=== PATIENT | female | born 1945 | race Caucasian/White ===

== ENCOUNTER 2016-07-24 09:35 | Emergency (ER) | payer OTHER ==
[~2016-07-24] VITALS: Ht 152.4 cm; Wt 45.5 kg
[~2016-07-24 09:35] MED LIST: COQ150CA PO; FISH100020 PO; MULT-65 PO
[2016-07-24 09:36] VITALS: BP 130/60; PULSE 81; RESP 17; TEMP 98.6; O2SAT 98
[2016-07-24] MEDS ORDERED: LIPI10TA PO (09:46)
[2016-07-24 10:30] VITALS: RESP 16; O2SAT 99
[2016-07-24] MEDS ORDERED: KETOROLAC TROMETHAMINE 30 MG/ML (IVP) VIAL IV PUSH ONE (10:30)
[2016-07-24] MEDS ORDERED: MORPHINE SULFATE 4 MG/ML INJ IV PUSH ONE (10:30)
[2016-07-24] MEDS ORDERED: ONDANSETRON HCL 4 MG/2 ML VIAL IVP ONE (10:30)
[2016-07-24] MEDS ORDERED: SODIUM CHLORIDE 0.9% FLUSH 10 ML FLUSH IV FLUSH PRN (10:30)
[2016-07-24 10:52] LABS: AUTOMATED NEUTROPHIL # 5.7 TH/MM3 (1.8-7.7); BASOPHIL % 0.3 % (0.0-2.0); EOSINOPHIL % 0.6 % (0.0-4.0); HEMATOCRIT 31.8 % (35.0-46.0); HEMO FLAGS DIFF FINAL; LYMPH % 5.9 % (9.0-44.0); LYMPHOCYTE # 0.4 TH/MM3 (1.0-4.8); MEAN CELL VOLUME 83.3 FL (80.0-100.0); MEAN CORPUSCULAR HEMOGLOBIN 27.6 PG (27.0-34.0); MEAN CORPUSCULAR HGB CONC 33.2 % (32.0-36.0); MONO % 5.4 % (0.0-8.0); NEUT % 87.8 % (16.0-70.0); PLATELET COUNT 202 TH/MM3 (150-450); RED BLOOD COUNT 3.82 MIL/MM3 (4.00-5.30); RED CELL DISTRIBUTION WIDTH 13.5 % (11.6-17.2); WHITE BLOOD COUNT 6.4 TH/MM3 (4.0-11.0)
--- NOTE | 2016-07-24 11:12 | RADRPT ---
EXAM DATE/TIME: 07/24/2016 10:47 [place] COMPARISON: No previous studies available for comparison. INDICATIONS : Right flank pain. ORAL CONTRAST: No oral contrast ingested. RADIATION DOSE: 3.10 CTDIvol (mGy) MEDICAL HISTORY : Cardiovascular disease. Diabetes mellitus type 2. SURGICAL HISTORY : None. ENCOUNTER: Initial ACUITY: 1 day PAIN SCALE: 3/10 LOCATION: Right Flank TECHNIQUE: Volumetric scanning of the abdomen and pelvis was performed. Using automated exposure control and ad justment of the mA and/or kV according to patient size, radiation dose was kept as low as reasonably achievable to obtain optimal diagnostic quality images. FINDINGS: LOWER LUNGS: The visualized lower lungs are clear. LIVER: Homogeneous density without lesion. There is no dilation of the biliary tree. No calcified gallston es. SPLEEN: Normal size without lesion. PANCREAS: Within normal limits. KIDNEYS: The left kidney is a unremarkable appearance with no renal calculi or obstruction. The right kidney i s mildly more prominent with moderate hydronephrosis and no right renal calculi. The right ureter is difficult to visualize and there is a 4 mm calcification in the right mid to posterior pelvis which i s of concern for a distal ureteral calculus. ADRENAL GLANDS: Within normal limits. VASCULAR: There is no aortic aneurysm. BOWEL/MESENTERY: There is evidence of anasarca with increased density throughout the mesentery. There is a small amoun t of free fluid in the posterior pelvis. The stomach, small bowel, and colon demonstrate no acute abn ormality. There is no free intraperitoneal air or fluid. ABDOMINAL WALL: Within normal limits. RETROPERITONEUM: There is no lymphadenopathy. BLADDER: No wall thickening or mass. REPRODUCTIVE: Within normal limits. INGUINAL: There is no lymphadenopathy or hernia. MUSCULOSKELETAL: Within normal limits for patient age. CONCLUSION: 1. Moderate right hydronephrosis. The right ureter is difficult to visualize however there is a 4 mm calcification in the right side of the pelvis which is of concern for a distal right ureteral calculu s. 2. Anasarca a small amount of fluid in the pelvis. Keon Fraser MD on July 24, 2016 at 11:02 Board Certified Radiologist. This report was verified electronically.
[2016-07-24 11:15] LABS: BACTERIA, URINE FEW /hpf; BLOOD, URINE LARGE (NEG); GLUCOSE,URINE NEG (NEG); HYALINE CAST, URINE 2 /lpf (RARE); KETONE, URINE TRACE mg/dL (NEG); MUCUS URINE FEW /lpf (OCC); NITRITE,URINE NEG (NEG); SQUAMOUS EPITHELIAL CELL URINE <1 /hpf (0-5); URINE COLOR YELLOW (YELLW/STRAW)
[2016-07-24 11:16] VITALS: RESP 16
[2016-07-24 11:16] LABS: COMMENT (UR) CULTURE INDICATED; CULTURE IF INDICATED CULTURE INDICATED
[2016-07-24 11:17] LABS: ALT (GPT) 23 U/L (10-53); ANION GAP 7 MEQ/L (5-15); AST (GOT) 22 U/L (15-37); BLOOD UREA NITROGEN 15 MG/DL (7-18); CHLORIDE 107 MEQ/L (98-107); GLOMERULAR FILTRATION RATE 70 ML/MIN (>89); POTASSIUM 3.7 MEQ/L (3.5-5.1); SODIUM (NA) 143 MEQ/L (136-145)
[2016-07-24 11:20] LABS: ALKALINE PHOSPHATASE 71 U/L (45-117); TOTAL BILIRUBIN ADULT 0.4 MG/DL (0.2-1.0)
[2016-07-24] MEDS ORDERED: HYDR-3533 PO (11:25)
[2016-07-24] MEDS ORDERED: ONDA4TAB7 SL (11:25)
[2016-07-24] MEDS ORDERED: PERI8.6T PO (11:25)
[2016-07-24] MEDS ORDERED: IBUP400T20 PO (11:26)
--- NOTE | 2016-07-24 11:26 | PD ---
HPI Chief Complaint: Flank/Kidney Pain Time Seen by Provider: 10:01 Travel History International Travel<30 days: No Contact w/Intl Traveler<30days: No Traveled to known affect area: No History of Present Illness HPI This is a 70-year-old woman who presents to the emergency department complaining of right flank pain. Patient is pretty quiet and her gives most of the history for her. She reports she is a history of memory problems. She currently started to develop right flank pain about 5 days ago. She was seen at outside hospital where she was diagnosed with a 3-5 mm kidney stone. She apparently was hospitalized due to pain. She was followed and they were planning on doing a procedure on Sunday, 2 days ago. However on Sunday night they apparently felt like her needs weren't being attended to until they left the hospital. He reports that they suffered over the weekend because "nothing at some of the hospital during the weekend". And then came to the emergency department today. He reportedly spoke to somebody at the [facility] office. She's had blood in her urine before his has a cystoscopy for that that was negative. She has reportedly never a kidney stones. She otherwise has been feeling generally well. No nausea vomiting. No fevers or chills. She has not taken anything for the pain since being home. She did not take anything this morning. She reports that her pain was "10 out of 10" this morning but is "7 out of 10 "now. History Past Medical History Narrative Medical Memory problems Vertigo Fibromyalgia Knee problems Borderline diabetes Tetanus Vaccination: > 5 Years Menopausal: Yes Social History Alcohol Use: No Tobacco Use: No Allergies-Medications (Allergen,Severity, Reaction): Uncoded Allergies: all medications (Allergy, Severe, 12/10/13) all prescribed medications causes nausea/sickness Reported Meds & Prescriptions Reported Meds & Active Scripts Active Ibuprofen 400 Mg Tab 400 Mg PO Q8H PRN Ondansetron Odt 4 Mg Tab 4 Mg SL Q8HR PRN Evi-Colace (Sennosides-Docusate Sodium) 8.6-50 Mg Tab 1 Tab PO BID PRN Lortab (Hydrocodone-Acetaminophen) 5-325 Mg Tab 1 Tab PO Q6H PRN Reported Lipitor (Atorvastatin Calcium) 10 Mg Tab 10 Mg PO DAILY Review of Systems Except as stated in HPI: all other systems reviewed are Neg Physical Exam Narrative GENERAL: Well-appearing 70-year-old woman, does not appear to be any discomfort or distress. SKIN: Focused skin assessment warm/dry. CARDIOVASCULAR: Regular rate and rhythm. No murmur appreciated. RESPIRATORY: No accessory muscle use. Clear to auscultation. Breath sounds equal bilaterally. GASTROINTESTINAL: Abdomen soft, non-tender, nondistended. Hepatic and splenic margins not palpable. No CVA tenderness to percussion. MUSCULOSKELETAL: No obvious deformities. No clubbing. No cyanosis. No edema. NEUROLOGICAL: Awake and alert. No obvious cranial nerve deficits. Motor grossly within normal limits. Normal speech. PSYCHIATRIC: Appropriate mood and affect; insight and judgment normal. Data Data Last Documented VS Vital Signs Date Time Temp Pulse Resp B/P Pulse Ox O2 Delivery O2 Flow Rate FiO2 07/24/16 11:16 16 07/24/16 10:30 99 Room Air 07/24/16 09:36 98.6 81 130/60 Orders Complete Blood Count With Diff (07/24/16 10:19) Comprehensive Metabolic Panel (07/24/16 10:19) Lipase (07/24/16 10:19) Urinalysis - C+S If Indicated (07/24/16 10:19) Ct Abd/Pel W/O Iv Contrast (07/24/16 10:19) Iv Access Insert/Monitor (07/24/16 10:19) Ecg Monitoring (07/24/16 10:19) Oximetry (07/24/16 10:19) Morphine Inj (Morphine Inj) (07/24/16 10:30) Ondansetron Inj (Zofran Inj) (07/24/16 10:30) Sodium Chloride 0.9% Flush (Ns Flush) (07/24/16 10:30) Ketorolac Inj (Toradol Inj) (07/24/16 10:30) Urine Culture (07/24/16 10:30) Labs Laboratory Tests Test 07/24/16 10:30 White Blood Count 6.4 TH/MM3 Red Blood Count 3.82 MIL/MM3 Hemoglobin 10.5 GM/DL Hematocrit 31.8 % Mean Corpuscular Volume 83.3 FL Mean Corpuscular Hemoglobin 27.6 PG Mean Corpuscular Hemoglobin 33.2 % Concent Red Cell Distribution Width 13.5 % Platelet Count 202 TH/MM3 Mean Platelet Volume 7.5 FL Neutrophils (%) (Auto) 87.8 % Lymphocytes (%) (Auto) 5.9 % Monocytes (%) (Auto) 5.4 % Eosinophils (%) (Auto) 0.6 % Basophils (%) (Auto) 0.3 % Neutrophils # (Auto) 5.7 TH/MM3 Lymphocytes # (Auto) 0.4 TH/MM3 Monocytes # (Auto) 0.3 TH/MM3 Eosinophils # (Auto) 0.0 TH/MM3 Basophils # (Auto) 0.0 TH/MM3 CBC Comment DIFF FINAL Differential Comment Urine Color YELLOW Urine Turbidity HAZY Urine pH 5.0 Urine Specific [place] 1.015 Urine Protein TRACE mg/dL Urine Glucose (UA) NEG mg/dL Urine Ketones TRACE mg/dL Urine Occult Blood LARGE Urine Nitrite NEG Urine Bilirubin NEG Urine Urobilinogen LESS THAN 2.0 MG/DL Urine Leukocyte Esterase MOD Urine RBC 47 /hpf Urine WBC 18 /hpf Urine Squamous Epithelial <1 /hpf Cells Urine Bacteria FEW /hpf Urine Hyaline Casts 2 /lpf Urine Mucus FEW /lpf Urine Yeast (Budding) FEW Microscopic Urinalysis Comment CULTURE INDICATED Sodium Level 143 MEQ/L Potassium Level 3.7 MEQ/L Chloride Level 107 MEQ/L Carbon Dioxide Level 29.0 MEQ/L Anion Gap 7 MEQ/L Blood Urea Nitrogen 15 MG/DL Creatinine 0.81 MG/DL Estimat Glomerular Filtration 70 ML/MIN Rate Random Glucose 106 MG/DL Calcium Level 9.1 MG/DL Total Bilirubin 0.4 MG/DL Aspartate Amino Transf 22 U/L (AST/SGOT) Alanine Aminotransferase 23 U/L (ALT/SGPT) Alkaline Phosphatase 71 U/L Total Protein 6.2 GM/DL Albumin 3.3 GM/DL Lipase 122 U/L [facility] Medical Decision Making Medical Screen Exam Complete: Yes Emergency Medical Condition: Yes Interpretation(s) LABS: CBC remarkable for hemoglobin of 10.5 CMP is unremarkable Lipase is normal UA was some red blood cells, few white blood cells. CT abdomen and pelvis: Moderate right hydronephrosis. Right ureter difficult to visualize however for Parker calcification the right side of pelvis which is of concern for distal right ureteral calculus. Small amount of fluid in the pelvis with some mesenteric edema. Differential Diagnosis Renal lithiasis, ureteral obstruction, UTI, other Narrative Course Medical decision making 70-year-old woman with a 4 mm right renal calculus causing right flank pain. She had this pain for about 5 days now. She looks otherwise well. She doesn't appear to be in any discomfort at this time. She didn't take any medicine over the weekend but he states that she had severe pain. During the the impression there in a common get a lithotripsy today in the hospital. CT scan shows a small 4 mm stone in the distal right ureter that'll likely pass on its own. We' ll discuss with urology given that they spoke to their office but will recommend conservative treatment and outpatient follow-up. FINAL: 70-year-old woman with a 4 mm in the right calculus. I spoke with the urologist front desk admin. He can see her today. They can schedule an outpatient procedure tomorrow if needed. This will likely pass on its own. She is comfortable now. She doesn't want any pain medicine or nausea medicine. Her who is with her is a little bit upset. He really would like this "taking care of since were here now". She has no indications for hospitalization or being exposed to those risks, or for an emergency procedure and being exposed to those risks. I discussed this with him. They do seem comfortable. The still wants to try to make an appointment with [facility]. We will give her prescriptions for medicines. They can return at any point if she has worsening symptoms. Diagnosis Primary Impression: Renal calculus, right Referrals: Aniceto Hamlin MD 1 day Additional Instructions: Take Lortab and ibuprofen as prescribed as needed for pain. Take Evi-Colace to prevent constipation if you take Lortab. Take Zofran if needed for nausea or vomiting. Called Dr. Hamlin's office now to schedule follow-up for this afternoon. Return to the emergency department for any new or worsening symptoms. Med/Other Pt SpecificInfo: Prescription(s) given Scripts Ibuprofen 400 Mg [id number] Mg PO Q8H PRN (PAIN SCALE 1 TO 10) #12 TAB Ref 0 Prov:Neymar Payan MD 07/24/16 Ondansetron Odt 4 Mg Tab4 Mg SL Q8HR PRN (Nausea/Vomiting) #12 TAB Prov:Neymar Payan MD 07/24/16 Sennosides-Docusate Sodium (Evi-Colace)8.6-50 Mg Tab1 Tab PO BID PRN ( Constipation) #20 TAB Ref 0 Prov:Neymar Payan MD 07/24/16 Hydrocodone-Acetaminophen (Lortab)5-325 Mg Tab1 Tab PO Q6H PRN (PAIN) #15 TAB Prov:Neymar Payan MD 07/24/16 Disposition: 01 DISCHARGE HOME Condition: Stable Neymar Payan MD Jul 24, 2016 11:26
[2016-07-24 12:17] VITALS: BP 130/77; TEMP 97.8
[2016-07-31] MEDS ORDERED: OXYB5TAB10 PO (16:32)
== END 2016-07-24 12:17 | disposition home or self-care (01) ==
LOC: NEPD 09:35
DX: N20.0 Calculus of kidney (principal); M79.7 Fibromyalgia
CPT/HCPCS: 74176; 80053; 81001; 83690; 85025; 87086; 96374; 96375; 99284; J1885; J2270; J2405

== ENCOUNTER 2016-07-27 13:50 | Observation (INO) | payer OTHER ==
[~2016-07-27] VITALS: Ht 157.5 cm; Wt 46.8 kg
[~2016-07-27 13:50] MED LIST changes: -COQ150CA PO; -FISH100020 PO; +HYDR-3533 PO; +IBUP400T20 PO; +LACTATED RINGER'S 1000 ML INJ 1,000 ML IV ONE; +LIPI10TA PO; -MULT-65 PO; +NEOSTIGMINE 3 MG/3 ML SYR IV ONE; +ONDA4TAB7 SL; +ONDANSETRON HCL 4 MG/2 ML VIAL IV PUSH ONE; +PERI8.6T PO; +PROPOFOL 200 MG/20 ML AMP IV ONE; +ePHEDrine/NS 25 MG/5 ML SYR IV ONE
[2016-07-27] MEDS ORDERED: CHLORHEXIDINE GLUCONATE 2 % 1 PACK (2 CLOTHS) TOPICAL PRN (14:30)
[2016-07-27] MEDS ORDERED: METOPROLOL TARTRATE 25 MG TAB PO PRN (14:30)
[2016-07-27] MEDS ORDERED: POVIDONE IODINE 5% (ANTISEPSIS KIT) 4 APPLICATIONS EACH NARE PRN (14:30)
[2016-07-27] MEDS ORDERED: INSULIN HUMAN REGULAR 1,000 UNITS/10 ML VIAL SQ PRN (14:30)
[2016-07-27] MEDS ORDERED: LACTATED RINGER'S 1000 ML IV PRN (14:30)
[2016-07-27] MEDS ORDERED: SODIUM CHLORID 0.9% 500 ML IV PRN (14:30)
[2016-07-27 15:04] VITALS: BP 149/65; PULSE 73; RESP 16; TEMP 98; O2SAT 99
--- NOTE | 2016-07-27 15:32 | EKG ---
Date Performed: 07/27/2016 Time Performed: 15:13:06 PTAGE: 70 years EKG: Sinus rhythm NORMAL ECG NO PREVIOUS TRACING DOCTOR: Cole Moreno Interpretating Date/Time 07/27/2016 15:31:30
[2016-07-27] MEDS ORDERED: MIDAZOLAM HCL 2 MG/2 ML VIAL ONE (16:20)
[2016-07-27] MEDS ORDERED: HYDROmorphone HCL PF 2 MG/ML VIAL ONE (16:21)
[2016-07-27] MEDS ORDERED: FAMOTIDINE 20 MG/2 ML VIAL ONE (16:21)
[2016-07-27] MEDS ORDERED: ACETAMINOPHEN 1000 MG/100 ML VIAL IV ONE (17:01)
[2016-07-27] MEDS ORDERED: IOHEXOL 350 MG/ML 50 ML BTL (for RAD DIAG) ONE (17:20)
--- NOTE | 2016-07-27 18:06 | PD.OP ---
Operative Report Date of Surgery: Jul 27, 2016 Preoperative Diagnosis: (1) Ureteral calculus, right Postoperative Diagnosis: (1) Ureteral calculus, right (2) Bladder mass Procedure: #1 Cystoscopy, right retrograde pyelogram, balloon dilation right distal ureter and right ureteroscopy with stone extraction. #2 bladder biopsy with fulguration Anesthesia: General Surgeon: Jack Melendez Instant Printer Operator(s): None Operation and Findings: Indication for procedure: Case of a pleasant 70-year-old female with an approximately 6 mm right distal ureteral calculus who presents now for right ureteroscopy with stone extraction. Operative procedure in detail: Patient was brought to the operating room suite and placed supine on the cystoscopy table. She was then placed under general anesthesia. She was then repositioned in the dorsolithotomy position and prepped and draped in normal sterile fashion. After an appropriate timeout was undertaken I proceeded with cystoscopic evaluation utilizing the rigid cystoscope with the 20 Nigerian sheath and the 30 lens. Both right and left ureteral orifices were correct anatomic position. There was clear reflux on the left and no reflux on the right side. Also noted adjacent to the right ureteral orifice was a small approximately 3 mm nodular mass lesion. I then proceeded with passing a sensor 0.035 wire up the patient's right ureter. The cystoscope was withdrawn and the ureter secured to sterile drape with hemostat. I then attempted to pass the [facility] self dilating ureteroscope along the previously past wire however there was significant resistance met at the distal ureter. I thus withdrew the ureteroscope was then reintroduced the cystoscope and backloaded the previously past wire to facilitate passing a ureteral balloon catheter. A 4 cm 18 Nigerian catheter was utilized and the distal ureter was balloon dilated at 20 rajwinder of pressure for 60 seconds. The balloon catheter was then withdrawn and the cystoscope removed. The wire was once again secured to sterile drape with hemostat. The [facility] ureteroscope was then once again introduced and easily advanced up the right distal ureter. The stone was met approximately 3 cm proximal to the ureteral orifice. I then grasped the stone with a 4 wire stone basket and removed it under direct vision without difficulty. The stone was sent off for chemical composition analysis. The ureteroscope was reintroduced and I advanced scope approximate half way up the right ureter and no additional stones were seen. There was some edema and oozing of blood at the stone impaction site noted. The ureteroscope was withdrawn and the cystoscope was reintroduced and the small bladder mass adjacent to the right ureteral orifice was excised with the cup biopsy forceps and sent off to pathology. The biopsy site was then fulgurated with the Bugbee electrode. A 6 Nigerian open-ended ureteral catheter was then utilized and advanced over the previously past wire the ureteral catheter was advanced up to the right renal pelvis and the wire was withdrawn. A retrograde pyelogram study was performed to outline the collecting system. The catheter was left in place and the cystoscope was withdrawn. A 16 Nigerian 10 cc Nye catheter was then placed and the ureteral catheter anchored to the Nye via a connector. Both catheters were then placed to gravity drainage. Patient tolerated the procedures without complications and was transferred to the PACU in satisfactory condition. Jack Melendez MD Jul 27, 2016 18:06
[2016-07-27] MEDS ORDERED: PERC5TAB12 PO (18:07)
[2016-07-27] MEDS ORDERED: ONDANSETRON HCL 4 MG/2 ML VIAL IV PUSH PRN ×2 (18:15→18:30)
[2016-07-27] MEDS ORDERED: oxyCODONE/ACETAMINOPHEN 5 MG/325 MG TAB PO PRN (18:15)
[2016-07-27] MEDS ORDERED: HYDROmorphone HCL PF 1 MG/ML VIAL IV PUSH PRN (18:30)
[2016-07-27] MEDS: POTASSIUM CHLORIDE INJ 10 MEQ in SODIUM CHLOR 0.45% 1000 ML INJ 1,000 ML IV SCH (19:16)
[2016-07-27 20:00] VITALS: BP 115/57; PULSE 64; RESP 17; TEMP 97.1; O2SAT 98
[2016-07-28] VITALS: BP 147/70; PULSE 79; RESP 17; TEMP 97.5; O2SAT 96
[2016-07-28 04:00] VITALS: BP 147/70; PULSE 77; RESP 17; TEMP 97.2; O2SAT 100
[2016-07-28] MEDS: POTASSIUM CHLORIDE INJ 10 MEQ in SODIUM CHLOR 0.45% 1000 ML INJ 1,000 ML IV SCH (07:07)
[2016-07-28 08:00] VITALS: BP 145/69; PULSE 80; RESP 18; TEMP 98.8; O2SAT 96
--- NOTE | 2016-07-28 09:47 | HHI.PR ---
Subjective Patient symptoms today Postoperative day #1 Nye and right ureteral catheter removed early this morning and patient has been voiding well Denies any pain Objective Vital Signs Vital Signs Date Time Temp Pulse Resp B/P Pulse Ox O2 Delivery O2 Flow Rate FiO2 07/28/16 08:00 98.8 80 18 145/69 96 07/28/16 04:00 97.2 77 17 147/70 100 07/28/16 00:00 97.5 79 17 147/70 96 07/27/16 20:00 97.1 64 17 115/57 98 07/27/16 20:00 97.1 64 17 115/57 98 07/27/16 19:45 97.2 51 14 150/72 100 Room Air 07/27/16 19:30 55 13 152/64 100 Room Air 07/27/16 19:00 51 14 146/76 100 Room Air 07/27/16 18:45 54 13 139/74 100 Room Air 07/27/16 18:30 59 14 133/71 100 Room Air 07/27/16 18:15 57 15 124/68 100 Room Air 07/27/16 18:06 97.3 56 19 123/56 100 Nasal Cannula 2 07/27/16 15:04 98.0 73 16 149/65 99 Intake & Output 07/28/16 07/28/16 07:00 19:00 Intake Total 1097 ml Output Total 1650 ml 350 ml Balance -553 ml -350 ml Intake Oral 480 ml IV Total 617 ml Output Urine Total 1650 ml 350 ml # Bowel Movements 0 Objective Remarks Abdomen soft, nondistended, nontender Extremities well-perfused Medications and IVs Current Medications Medications (Trade) Dose Ordered Sig/Gianni Route Start Time Stop Time Status Last Admin Lactated Ringer's 1,000 ml @ 30 mls/hr Q24H PRN IV 07/27/16 14:30 07/30/16 14:29 07/27/16 15:00 (NS 500 ml Inj) 500 ml @ 30 mls/hr [id number] PRN IV 07/27/16 14:30 07/30/16 14:29 Ondansetron HCl 4 mg 4 mg Q6HR PRN IV PUSH 07/27/16 18:15 (KCl Inj/1/2 NS 1000 ml Inj) 1,005 ml @ 83 mls/hr Q12H7M IV 07/27/16 19:00 07/27/16 19:16 (Dilaudid Pf Inj) 0.5 mg Q4H PRN IV PUSH 07/27/16 18:30 (Zofran Inj) 4 mg Q6H PRN IV PUSH 07/27/16 18:30 Assessment and Plan Assessment and Plan Urologic impression: #1 status post right ureteroscopic stone extraction with excellent postoperative course #2 status post bladder biopsy Plan: #1 DC patient home #2 office follow up in approximately 2-3 weeks [phone] Jack Melendez MD Jul 28, 2016 09:47
[2016-07-31] MEDS ORDERED: OXYB5TAB10 PO (16:32)
== END 2016-07-28 10:32 | disposition home or self-care (01) ==
LOC: HSDC 13:50 → HSDI 18:30 → N06A 19:58
PROVIDERS: ADMIT Urology; ATTEND Urology
DX: N20.1 Calculus of ureter (principal); D41.4 Neoplasm of uncertain behavior of bladder; E78.5 Hyperlipidemia, unspecified
CPT/HCPCS: 52224; 52352; 74420; 82370; 82948; 88300; 88305; 93005; C1726; C1769; G0378; J0131; J2250; J2405; J2710; J3010; J3480; J7120; Q9967; J1170